=== PATIENT | male | born 2000 | race Two or more races ===

== ENCOUNTER 2023-12-14 17:47 | Emergency (ER) | payer SELFPAY ==
[2023-12-14] MEDS: Lidocaine 2% Viscous Solution 15 ML UD ONE (19:17)
== END 2023-12-14 19:26 | disposition home or self-care (01) ==
LOC: MW.ED 17:47
DX: K64.9 Unspecified hemorrhoids (principal); Z75.8 Other problems related to medical facilities and other health care
CPT/HCPCS: 99282; 99283